=== PATIENT | female | born 1990 | race African-American/Black ===

== ENCOUNTER 2022-04-01 11:42 | Emergency (ER) | payer MEDICAID ==
[~2022-04-01] VITALS: Ht 167.6 cm; Wt 108.9 kg
[2022-04-01 11:42] VITALS: BP_SYST 136
[2022-04-01 16:12] LABS: BASOPHILS # (AUTO) 0.1 K/uL (0.0-0.2); BASOPHILS % (AUTO) 0.6 % (0.0-2.0); EOSINOPHILS # (AUTO) 0.1 K/uL (0.0-0.4); EOSINOPHILS % (AUTO) 0.7 % (0.0-4.0); HEMATOCRIT 41.8 % (36-48); HEMOGLOBIN 13.1 g/dL (12.0-16.0); LYMPHOCYTES # (AUTO) 2.3 K/uL (1.0-5.5); LYMPHOCYTES % (AUTO) 23.9 % (20.5-51.5); MEAN CORPUSCULAR HEMOGLOBIN 24 pg (27-31); MEAN CORPUSCULAR HGB CONC 31 % (32-36); MEAN CORPUSCULAR VOLUME 75 fL (79.0-98.0); MONOCYTES # (AUTO) 0.7 K/uL (0.0-1.0); NEUTROPHILS # (AUTO) 6.5 K/uL (1.8-7.7); NEUTROPHILS % (AUTO) 67.8 % (40.0-70.0); PLATELET COUNT (AUTO) 287 K/uL (130-430); RED BLOOD CELL COUNT(AUTO) 5.59 MIL/uL (4.2-6.2); RED CELL DISTRIBUTION WIDTH 15.1 % (9.0-15.0); WHITE BLOOD COUNT (AUTO) 9.6 K/uL (4.8-10.8)
[2022-04-01 16:26] LABS: CALCIUM 9.6 mg/dL (8.4-11.0); CREATININE 0.96 mg/dL (0.55-1.30)
[2022-04-01 16:41] LABS: ALBUMIN 4.5 g/dL (3.4-4.8); THYROID STIMULATING HORMONE 0.81 uIu/mL (0.36-3.74); TOTAL BILIRUBIN 0.8 mg/dL (0.0-1.0)
== END 2022-04-01 15:15 | disposition home or self-care (01) ==
LOC: EDBD 11:42 → SED 11:42
DX: G47.00 Insomnia, unspecified (principal); Z79.899 Other long term (current) drug therapy
CPT/HCPCS: 36415; 80053; 84443; 84703; 85025; 99283

== ENCOUNTER 2022-04-11 23:17 | Emergency (ER) | payer MEDICAID ==
[~2022-04-11] VITALS: Ht 170.2 cm; Wt 108.9 kg
[2022-04-11 23:21] VITALS: BP_SYST 114
--- NOTE | 2022-04-11 23:27 | NUR ---
Placed in room 1 . Placed on athletic monitor, blood pressure machine and pulse oximeter. To gown for exam. Side rails up. Report given to TRESSA ADHIKARI(REG).
--- NOTE | 2022-04-11 23:29 | NUR ---
ER at bedside examining patient.
[2022-04-11] MEDS ORDERED: LORazepam 1 MG TABLET PO ONE (23:45)
[2022-04-11] MEDS ORDERED: VIS25 PO (23:53)
[2022-04-11] MEDS ORDERED: TRAZ-250 PO (23:53)
[2022-04-12 01:05] VITALS: BP_SYST 116
--- NOTE | 2022-04-12 01:05 | NUR ---
Patient given written and verbal discharge instructions and verbalizes understanding. ER MD discussed with patient the results and treatment provided. Patient in stable condition. ID arm band removed. Rx of TRAZODONE AND VISTARIL given. Patient educated on pain management and to follow up with PMD. Pain Scale 0/10 Opportunity for questions provided and answered. Medication side effect fact sheet provided.
== END 2022-04-12 01:05 | disposition home or self-care (01) ==
LOC: SED 23:17
DX: R06.02 Shortness of breath (principal); F41.9 Anxiety disorder, unspecified; F12.90 Cannabis use, unspecified, uncomplicated; Z79.899 Other long term (current) drug therapy
CPT/HCPCS: 99283

== ENCOUNTER → 2022-04-14 | Emergency (ER) | payer MEDICAID ==
[~2022-04-14] VITALS: Ht 170.2 cm; Wt 108.9 kg
[~2022-04-14] MED LIST: LORA-259 PO; TRAZ-250 PO; VIS25 PO
[2022-04-14 13:49] VITALS: BP_SYST 132
--- NOTE | 2022-04-14 13:51 | NUR ---
Patient triaged ON AMBULANCE GURNEY.VSS and patient appears in no acute distress at this time. Accompanied by EMT'S, awaiting available bed, and MD notified of need for MSE.
--- NOTE | 2022-04-14 14:23 | NUR ---
PT MOVED TO ED LOBBY, PT IS AMBULATORY, AAOX4, VSS
--- NOTE | 2022-04-14 14:32 | NUR ---
ER DR. BRIGGS EXAMINING PT IN TRIAGE
== END | disposition home or self-care (01) ==
LOC: SED 13:27
DX: F41.9 Anxiety disorder, unspecified (principal); Z79.899 Other long term (current) drug therapy
CPT/HCPCS: 99283

== ENCOUNTER 2022-04-18 03:10 | Emergency (ER) | payer MEDICAID ==
[~2022-04-18] VITALS: Ht 170.2 cm; Wt 108.9 kg
[2022-04-18 03:20] VITALS: BP_SYST 120
--- NOTE | 2022-04-18 03:20 | NUR ---
BIB ambulance from home for rx refill ativan.Prior arrival pt called and spoke to nurse.Pt states she run out of her Ativan and she has appointment today to see her PCP.Pt states she couldnt sleep and wants some Ativan.Her last dose of Ativan was yesterday per pt.States " I call 911 because I dont have a ride and money to pay [employer].Pt arrived to ER AAOx 4.No resp distress noted.RR even/unlabored.DR Cotter notified.
--- NOTE | 2022-04-18 03:20 | NUR ---
Patient triaged and placed in waiting room. VSS and patient appears in no acute distress at this time. Awaiting available bed, and MD notified of need for MSE.
--- NOTE | 2022-04-18 04:44 | NUR ---
ER examining patient in the triage room.
[2022-04-18] MEDS ORDERED: LORA-259 PO (04:56)
[2022-04-18] MEDS ORDERED: TRAZ-250 PO (04:56)
[2022-04-18] MEDS ORDERED: LORazepam 1 MG TABLET PO ONE (05:00)
--- NOTE | 2022-04-18 05:46 | NUR ---
Patient given written and verbal discharge instructions and verbalizes understanding. ER MD discussed with patient the results and treatment provided. Patient in stable condition. ID arm band removed. Rx of Ativan and Desyrel given. Patient educated on pain management and to follow up with PMD. Pain Scale 0/10. Opportunity for questions provided and answered. Medication side effect fact sheet provided.
[2022-04-18 05:48] VITALS: BP_SYST 118
== END 2022-04-18 05:48 | disposition home or self-care (01) ==
LOC: SED 03:10
DX: F41.9 Anxiety disorder, unspecified (principal); G47.00 Insomnia, unspecified; F17.200 Nicotine dependence, unspecified, uncomplicated; F12.90 Cannabis use, unspecified, uncomplicated; Z79.899 Other long term (current) drug therapy
CPT/HCPCS: 99281

== ENCOUNTER 2022-07-07 12:24 | Emergency (ER) | payer MEDICAID ==
[~2022-07-07] VITALS: Ht 167.6 cm; Wt 108.9 kg
[2022-07-07 12:38] VITALS: BP_SYST 114
[2022-07-07] MEDS ORDERED: FLUT16SP16 NS (13:26)
[2022-07-07] MEDS ORDERED: GUAI5SYR PO (13:26)
[2022-07-07] MEDS ORDERED: ALBMDI INH (13:26)
[2022-07-07] MEDS ORDERED: PSEU120T57 PO (13:26)
[2022-07-07 14:09] VITALS: BP_SYST 114
== END 2022-07-07 14:08 | disposition home or self-care (01) ==
LOC: SED 12:24
DX: J20.8 Acute bronchitis due to other specified organisms (principal); R05.9 Cough, unspecified; R09.81 Nasal congestion; J02.9 Acute pharyngitis, unspecified; Z79.899 Other long term (current) drug therapy
CPT/HCPCS: 71045; 99283